=== PATIENT | female | born 1985 | race Caucasian/White ===

== ENCOUNTER 2017-04-02 12:28 | Outpatient (CLI) | payer BC ==
[~2017-04-02 12:28] MED LIST: GADOBUTROL 10 MMOL/10 ML VIAL ONE
[2017-04-02] MEDS ORDERED: GADOBUTROL 10 MMOL/10 ML VIAL IVP ONE (13:32)
--- NOTE | 2017-04-02 15:44 | MRI Report ---
EXAM: MRI BRAIN AND ORBITS WITHOUT AND WITH CONTRAST EXAM DATE: 04/02/2017 01:50 PM. CLINICAL HISTORY: PAPILLEDEMA BOTH EYES. COMPARISON: None. TECHNIQUE: Multiplanar, multisequence T1-weighted and fluid-sensitive MR sequences of the brain were performed. Sequences optimized for routine and orbit evaluation. Other: None. IV Contrast: 10 cc Gada vist. FINDINGS: Brain Volume: Normal for age. Parenchyma: No acute hemorrhage, mass, or infarct. No white matter lesions identified. No abnormal en hancement. Ventricles/Cisterns: Ventricles, sulci, and cisterns are normal. No hydrocephalus. No abnormal small volume ventricular system/no "slitlike" appearance to the ventricles. No abnormal extra-axial fluid c ollection or hemorrhage. Orbits: Mild prominence to CSF is seen within the optic nerve sheath bilaterally. No flattening is se en at the optic disk. The globes, extraocular muscles, and orbital fat are symmetric and unremarkable . Sella Turcica: Note is made of a partially empty sella turcica. The pituitary gland, cavernous sinuse s, suprasellar cistern and optic chiasm are unremarkable. IAC: Symmetric and unremarkable. Vasculature: Normal signal flow void is seen in the major arterial structures at the skull base. The dural sinuses are patent and enhance normally. No dural sinus thrombosis/filling defect or stenosis i s appreciated. Sinuses: No acute sinus disease. Bones: No focal pathologic appearing marrow signal changes. Other: None. IMPRESSION: 1. Mild prominence to CSF is seen in the optic nerve sheath bilaterally. Note is made of a partially empty sella turcica. These findings can represent normal variants or be associated with idiopathic in tracranial hypertension (IIH). No additional findings of IIH is appreciated. 2. Otherwise normal MRI of the brain and orbits. [facility] Referring Provider Line: [phone] SITE ID: [id number]
== END 2017-04-02 12:29 | disposition home or self-care (01) ==
LOC: DI 12:28
PROVIDERS: ATTEND Optometrist
DX: H47.10 Unspecified papilledema (principal)
CPT/HCPCS: 70553; A9585

== ENCOUNTER 2020-05-21 17:14 | Outpatient (CLI) | payer OTHER | END 2020-05-21 17:15 | disposition home or self-care (01) | LOC: COV 17:14 | PROVIDERS: ATTEND Family Medicine | DX: R05 Cough (principal); R07.0 Pain in throat; R09.81 Nasal congestion; Z20.822 Contact with and (suspected) exposure to COVID-19 ==